=== PATIENT | female | born 1945 | race Caucasian/White ===

== ENCOUNTER → 2018-04-20 | Outpatient (CLI) | payer MEDICARE ==
[2018-04-20 10:49] LABS: T4, Free (Free Thyroxine) 1.45 ng/dL (0.78-2.19)
--- NOTE | 2018-04-20 13:30 | US ---
EXAMINATION TYPE: US thyroid st tissue head/neck DATE OF EXAM: 04/20/2018 COMPARISON: US 07/03/2014 CLINICAL HISTORY: 72-year-old female E04.2 nontoxic multinodular goiter. TECHNIQUE: Multiple sonographic images of the thyroid gland are obtained. FINDINGS: Developer Advisor notes: Very difficult to follow old nodules due to increased heterogenicity of thyroid bi laterally GLAND SIZE: Right Lobe: 4.6 x 1.5 x 1.1 cm Overall Parenchyma: heterogenous Left Lobe: 4.6 x 1.4 x 1.4 cm Overall Parenchyma: heterogeneous Isthmus Thickness: 0.3 cm NODULES RIGHT: # of nodules measured on right: 3 1. 0.7 X 0.6 x 0.7 cm hypoechoic mixed nodule at the upper pole with well-defined margins; . This nodule is wider than tall and shows intranodular vascularity. Prior size: 0.6 x 0.6 x 0.6 cm 2. 0.9 X 0.6 x 0.8 cm isoechoic solid nodule at the lower pole with poorly defined margins; . This nodule is wider than tall and shows intranodular vascularity. Prior size: 0.9 x 0.5 x 1.0 cm 3. 0.9 X 0.6 x 0.9 cm hypoechoic mixed nodule at the lower pole with poorly defined margins; . This nodule is wider than tall and shows intranodular vascularity. Prior size: 0.9 x 0.5 x 0.7 cm LEFT: # of nodules measured on left: 3 1. 1.0 X 0.6 x 0.9 cm hypoechoic solid nodule at the upper pole with well-defined margins; . This nodule is wider than tall and shows intranodular vascularity. Prior size: 1.0 x 0.5 x 0.6 cm 2. 0.9 X 0.5 x 0.8 cm hypoechoic mixed nodule at the mid pole with well-defined margins; . This nod ule is wider than tall and shows intranodular vascularity. Prior size: 0.9 x 0.5 x 1.0 cm 3. 1.8 X 1.2 x 1.4 cm hypoechoic mixed nodule at the lower pole with poorly defined margins; . This nodule is wider than tall and shows intranodular vascularity. Prior size: 1.1 x 0.5 x 1.2 cm ISTHMUS: # of nodules measured in the isthmus: 1 1. 0.6 X 0.3 x 0.6 cm hypoechoic mixed nodule at the mid pole with well-defined margins; . This no dule is wider than tall and shows no intranodular vascularity. Prior size: 0.8 x 0.5 x 0.8 cm Bilateral neck scanned, no evidence of lymphadenopathy. Bilateral heterogeneous, multinodular thyroi d glands. IMPRESSION: 1. Multinodular thyroid gland. 2. Very difficult exam given the degree of parenchymal heterogeneity. 3. Overall, nodules our relatively stable aside from the dominant 1.8 x 1.4 cm mixed nodule in the le ft lower pole increased in size versus 1.2 x 1.1 cm in 2014.
== END | disposition home or self-care (01) ==
LOC: RADUSWWP 09:06
PROVIDERS: ATTEND Internal Medicine Endocrinology, Diabetes & Metabolism
DX: E04.2 Nontoxic multinodular goiter (principal)
CPT/HCPCS: 36415; 76536; 84439; 84443

== ENCOUNTER → 2019-07-22 | Outpatient (CLI) | payer MEDICARE ==
--- NOTE | 2019-07-22 08:25 | US ---
EXAMINATION TYPE: US duplex aorta DATE OF EXAM: 07/22/2019 COMPARISON: CT chest performed today. CLINICAL HISTORY: I71.4 AAA without rupture; J98.4 Lung Nodule. EXAM MEASUREMENTS: Abdominal Aorta: Proximal: 2.9 x 3.2 cm Mid: 3.3 x 4.3 cm Distal: 2.5 x 2.0 cm Bifurcation: rt, 1.0 x 1.1 cm lt, 1.0 x 1.1 cm AAA Atherosclerotic changes noted. IMPRESSION: 1. There is no abdominal aortic aneurysm measuring 4.3 x 3.3 cm. Distal aorta of normal caliber. Ther e also is mild aneurysmal dilation of the proximal abdominal aorta measuring 2.9 x 3.2 cm. Recommend correlation with CT scan.
--- NOTE | 2019-07-22 08:55 | CT ---
EXAMINATION TYPE: CT chest wo con DATE OF EXAM: 07/22/2019 COMPARISON: None available at this institution HISTORY: Follow up lung nodule. Abdominal aortic aneurysm without rupture. CT DLP: 188 mGycm. Automated Exposure Control for Dose Reduction was Utilized. TECHNIQUE: CT scan of the thorax is performed without IV contrast. FINDINGS: LUNGS: There is mild nodular pleural parenchymal thickening of the lung apices and mild background em physematous change. Multifocal pleural parenchymal scarring is present. The lungs are grossly clear, there is no concerning parenchymal mass or nodule identified. There is no pleural effusion or pneum othorax seen. The tracheobronchial tree is patent. MEDIASTINUM: There is aneurysmal dilatation of the descending thoracic aorta distally measuring 3.9 x 3.7 cm in transverse by anterior posterior dimension on series 3 image 52. In the mid descending tho racic aorta the aorta measures 3.8 x 3.8 cm on series 3 image 41. The aortic root measures 3.3 cm, wi thin normal limits. Ascending thoracic aorta at the level of main pulmonary artery measures 3.8 cm, m ildly dilated. Aortic arch measures 3.5 cm. Overall moderate atheromatous changes of the thoracic aor ta and mild coronary artery calcifications. Heart is not enlarged. Lack of IV contrast is noted to li mukul evaluation for mediastinal and especially hilar adenopathy. There are no definitive greater than 1 cm hilar or mediastinal lymph nodes. No cardiomegaly or pericardial effusion is seen. OTHER: Gallbladder surgically absent. Mild multilevel degenerative disc disease of the thoracic spine . Diffuse osseous demineralization. IMPRESSION: 1. Thoracic aortic aneurysm. Descending thoracic aorta is dilated measuring up to 3.9 cm and ascendin g thoracic aorta measures up to 3.8 cm. 2. No suspicious pulmonary nodules seen. Multifocal pleural parenchymal scarring and mild background emphysematous change.
== END | disposition home or self-care (01) ==
LOC: RADCTMAIN 07:16
PROVIDERS: ATTEND Family Medicine
DX: I71.2 Thoracic aortic aneurysm, without rupture (principal); J43.9 Emphysema, unspecified; I71.4 Abdominal aortic aneurysm, without rupture
CPT/HCPCS: 71250; 93979

== ENCOUNTER → 2020-08-17 | Outpatient (CLI) | payer MEDICARE ==
[2020-08-17 13:50] LABS: Basophils # (A) 0.1 k/uL (0-0.2); Basophils % (A) 1 %; Eosinophils # (A) 0.1 k/uL (0-0.7); Eosinophils % (A) 1 %; HCT 32.9 % (34.0-46.0); HGB 11.3 gm/dL (11.4-16.0); Lymphocytes # (A) 2.6 k/uL (1.0-4.8); Lymphocytes % (A) 37 %; MCH 30.7 pg (25.0-35.0); MCHC 34.2 g/dL (31.0-37.0); MCV 89.7 fL (80.0-100.0); Mean Platelet Volume 7.3; Monocytes # (A) 0.5 k/uL (0-1.0); Monocytes % (A) 7 %; Neutrophils # (A) 3.5 k/uL (1.3-7.7); Neutrophils % (A) 51 %; Platelet Count 234 k/uL (150-450); RBC 3.67 m/uL (3.80-5.40); RDW 14.9 % (11.5-15.5); WBC 6.9 k/uL (3.8-10.6)
[2020-08-17 14:00] LABS: Magnesium 1.4 mg/dL (1.6-2.3); Phosphorus 3.7 mg/dL (2.5-4.5); Potassium 3.6 mmol/L (3.5-5.1); Uric Acid 7.4 mg/dL (3.7-7.4)
--- NOTE | 2020-08-17 16:51 | CT ---
EXAMINATION TYPE: CT angio chest DATE OF EXAM: 08/17/2020 COMPARISON: 07/22/2019 HISTORY: 74-year-old female I71.2, follow-up thoracic aortic aneurysm. TECHNIQUE: Contiguous axial scanning of the chest performed without and with IV Contrast, patient inj ected with 100 mL of Isovue 370. Coronal/sagittal MIP reconstructions performed. 3-D reconstructions generated on a dedicated independent workstation. CT DLP: 286.6 mGycm Automated exposure control for dose reduction was used. FINDINGS: Heart normal size without pericardial effusion. Aortic root estimated at 3.4 cm. Limitation due to motion artifact. Ectatic ascending aorta at 3.5 cm, unchanged. Ectatic proximal arch at 3.9 cm versus 4.2 cm, previously. There is variant direct takeoff of the left vertebral artery directly from the aortic arch. Distal arch aneurysmal at 3.8 cm versus 3.7 cm, previously. Upper descending thoracic aorta aneurysmal at 4.1 cm, unchanged. Middescending thoracic aorta is aneurysmal at 3.9 cm, unchanged. Distal descending thoracic aorta aneurysmal 3.6 cm, unchanged. Aorta at the thoracoabdominal junction aneurysm about 3.6 cm, unchanged. Initial noncontrast images show no evidence for acute intramural hematoma. No thoracic lymphadenopathy by CT size criteria. Biapical pleural-parenchymal scarring. Mild centrilobular emphysema. Mild diffuse bronchial wall thi ckening. No consolidation or pleural effusion. Stable 4 mm peripheral right upper lobe pulmonary nodule, axial image 18. Stable 5 mm peripheral right lower lobe pulmonary nodule, axial and 41. Visualized upper abdomen shows no gross abnormality. Bones: No osseous destructive process. Anterior endplate spondylosis T9-T10. IMPRESSION: 1. DIFFUSELY ANEURYSMAL AORTIC ARCH (3.9 CM) AND DESCENDING THORACIC AORTA (4.1 CM), NOT SIGNIFICANTL Y CHANGED FROM 07/22/2019. 2. COPD WITH MILD EMPHYSEMA AND BIAPICAL PLEURAL-PARENCHYMAL SCARRING. A COUPLE PULMONARY NODULES REM AIN UNCHANGED SUGGESTING A BENIGN ETIOLOGY.
[2020-08-17 23:55] LABS: % Iron Saturation 19.11 (12.00-45.00)
[2020-08-18 00:07] LABS: Ferritin 26.9 ng/mL (10.0-291.0)
== END ==
LOC: RADCTMAIN 12:50
PROVIDERS: ATTEND Surgery
DX: I71.2 Thoracic aortic aneurysm, without rupture (principal); J44.9 Chronic obstructive pulmonary disease, unspecified; R91.8 Other nonspecific abnormal finding of lung field; J98.4 Other disorders of lung; E55.9 Vitamin D deficiency, unspecified; N25.81 Secondary hyperparathyroidism of renal origin; M10.9 Gout, unspecified; N39.0 Urinary tract infection, site not specified; D50.9 Iron deficiency anemia, unspecified; D63.1 Anemia in chronic kidney disease; N18.30 Chronic kidney disease, stage 3 unspecified; E03.8 Other specified hypothyroidism
CPT/HCPCS: 80048; 82728; 83540; 83550; 83735; 84100; 84443; 84550; 85025; 82306; 83970; 71275; 36415; Q9967

== ENCOUNTER → 2021-03-09 | Outpatient (CLI) | payer MEDICARE ==
[2021-03-10 01:15] LABS: African American GFR (CKD) 56.5 (60.0-200.0); Anion Gap 3.8 mmol/L (4.00-12.00); BUN/Creat Ratio 11.82 Ratio (12.00-20.00); Calcium 8.6 mg/dL (8.7-10.3); Carbon Dioxide 30.2 mmol/L (21.6-31.8); Non-African American GFR(CKD) 48.7 (60.0-200.0); Potassium 4.2 mmol/L (3.5-5.5)
[2021-03-10 01:24] LABS: T4, Free (Free Thyroxine) 1.1 ng/dL (0.80-1.80)
== END | disposition home or self-care (01) ==
LOC: LABWHC1 11:37
PROVIDERS: ATTEND Internal Medicine Nephrology
DX: N18.31 Chronic kidney disease, stage 3a (principal); E04.2 Nontoxic multinodular goiter
CPT/HCPCS: 36415; 80048; 84439; 84443

== ENCOUNTER → 2021-08-23 | Outpatient (CLI) | payer MEDICARE ==
[2021-08-23 14:15] LABS: Anisocytosis Slight; Basophils % (A) 1 %; Eosinophils # (A) 0.1 k/uL (0-0.7); Eosinophils % (A) 1 %; HCT 29.7 % (34.0-46.0); HGB 9.2 gm/dL (11.4-16.0); Hypochromasia Moderate; Lymphocytes # (A) 2.2 k/uL (1.0-4.8); Lymphocytes % (A) 36 %; MCH 30.1 pg (25.0-35.0); Macrocytosis Slight; Mean Platelet Volume 7.2; Monocytes # (A) 0.6 k/uL (0-1.0); Monocytes % (A) 9 %; Neutrophils % (A) 50 %; Platelet Count 250 k/uL (150-450); RBC 3.06 m/uL (3.80-5.40); RDW 19.2 % (11.5-15.5); WBC 6.1 k/uL (3.8-10.6)
[2021-08-23 14:26] LABS: Albumin 3.4 g/dL (3.5-5.0); Calcium 9.1 mg/dL (8.4-10.2); Magnesium 1.7 mg/dL (1.6-2.3); Phosphorus 4.3 mg/dL (2.5-4.5); Potassium 4.8 mmol/L (3.5-5.1)
[2021-08-23 15:22] LABS: Appearance,Urine Cloudy (Clear); Bacteria,Urine Many /hpf; Bilirubin,Urine Negative (Negative); Blood,Urine Trace (Negative); Color,Urine Light Yellow; Glucose,Urine (UA) Negative (Negative); Hyaline Casts,Urine 10 /lpf (0-2); Ketones,Urine Negative (Negative); Leukocyte Esterase,Urine Large (Negative); Mucus,Urine Rare /hpf; Nitrite,Urine Negative (Negative); Protein,Urine Negative (Negative); RBC,Urine 16 /hpf (0-5); Specific Gravity,Urine 1.011 (1.001-1.035); Squamous Epithelial Cell,Urine 5 /hpf (0-4); Urobilinogen,Urine <2.0 mg/dL (<2.0); WBC,Urine >182 /hpf (0-5)
[2021-08-23 15:37] LABS: Creatinine,Urine Random 66.1 mg/dL; Protein/Creatinine Ratio,Urine 0.257
--- NOTE | 2021-08-23 17:38 | CT ---
EXAMINATION TYPE: CT angio chest DATE OF EXAM: 08/23/2021 COMPARISON: 08/17/2020 HISTORY: 75-year-old female I71.2, h/o thoracic aortic aneurysm w/o rupture and stent placement TECHNIQUE: Contiguous axial scanning of the chest performed without and with IV Contrast, patient inj ected with 80 mL of Isovue 370. Coronal/sagittal MIP reconstructions performed. 3-D reconstructions g enerated on a dedicated independent workstation. CT DLP: 498 mGycm Automated exposure control for dose reduction was used. FINDINGS: Heart normal size without pericardial effusion. Aortic root normal caliber at 3.0 cm. Ascending aorta overlying ectatic at 3.5 cm, unchanged. Proximal arch measures 3.9 cm, unchanged. Interval placement of endovascular stent graft from the mid aortic arch down to the lower descending thoracic aorta. With no direct takeoff of the left vertebral artery directly from the aortic arch. Proximal stent mkiey ding zone is at the level of the left subclavian artery. Distal arch caliber of 3.9 cm, unchanged. Upper descending thoracic aorta caliber 3.6 cm versus 4.0 cm, previously. Just below this, axial image 26, there is a focal 1.6 cm accumulation of contrast outside of the sten t wall along the right lateral aspect, posterior to the esophagus, at the level of the ann-marie. Suspec t a focal type II endoleak. Reference axial image 26 Middescending thoracic aorta caliber 3.7 cm, unchanged. Lower descending thoracic aortic aneurysm 3.8 cm, significantly changed. At the thoracoabdominal junction just beyond the stent graft, caliber of 3.7 cm, unchanged. Initial noncontrast images show no evidence for acute intramural hematoma. No evidence for aortic dis section. No thoracic lymphadenopathy. Mild diffuse bronchial wall thickening. Minimal biapical pleural parenchymal scarring. 4 mm lateral right midlung pulmonary nodule is unchanged compatible with a benign etiology. Some mini mal strandy atelectasis or scarring in the lower lungs. No consolidation or pleural effusion. Minimal emphysematous change. Visualized upper abdomen shows cholecystectomy clips. Bones: No osseous destructive process. IMPRESSION: 1. COPD WITH MINIMAL EMPHYSEMA. 2. INTERVAL PLACEMENT OF DESCENDING THORACIC AORTA ENDOVASCULAR STENT GRAFT EXTENDING FROM THE LEVEL OF THE LEFT SUBCLAVIAN ARTERY TO THE DISTAL DESCENDING THORACIC AORTA. 3. THE UPPER DESCENDING THORACIC AORTA CALIBER IS SLIGHTLY IMPROVED AT 3.6 CM VERSUS 4.0 CM, PREVIOUS LY. OTHERWISE, DIFFUSE ECTASIA OF THE THORACIC AORTA IS UNCHANGED. 4. FOCAL NODULAR 1.6 CM ACCUMULATION OF CONTRAST ALONG THE RIGHT LATERAL WALL OF THE UPPER THIRD DESC ENDING THORACIC AORTA LOCATED OUTSIDE OF THE STENT GRAFT WALL. A TYPE II ENDOLEAK IS SUGGESTED AND FO LLOW-UP IS RECOMMENDED.
[2021-08-23 21:36] LABS: % Iron Saturation 27.1 (12.00-45.00)
== END | disposition home or self-care (01) ==
LOC: RADCTMAIN 13:03
PROVIDERS: ATTEND Surgery
DX: I77.810 Thoracic aortic ectasia (principal); J43.9 Emphysema, unspecified
CPT/HCPCS: 82570; 80048; 84156; 82728; 82040; 83540; 83550; 83735; 84100; 84550; 85025; 81001; 82306; 83970; 87086; 71275; 36415; Q9967

== ENCOUNTER → 2021-09-09 | Outpatient (CLI) | payer MEDICARE ==
--- NOTE | 2021-09-09 13:46 | US ---
EXAMINATION TYPE: US thyroid st tissue head/neck DATE OF EXAM: 09/09/2021 COMPARISON: Prior APRIL 20, 2018 CLINICAL HISTORY: E04.2 MULTINODULAR GOITER. goiter GLAND SIZE: Right Lobe: 5.0 x 2.0 x 1.4 cm Overall Parenchyma: heterogenous Left Lobe: 4.1 x 1.4 x 1.4 cm Overall Parenchyma: heterogeneous Isthmus Thickness: 0.3 cm NODULES RIGHT: # of nodules measured on right: 2 1. 0.9 X 0.6 x 0.7 cm, upper , mixed, hypoechoic nodule, which is wider than tall, with smooth kapil ins, without echogenic foci. Prior size: 0.7 x 0.6 x 0.7 cm 2. 0.9 X 0.5 x 0.6 cm, mid , isoechoic, mixed nodule, which is wider than tall, with ill-defined ma rgins, without echogenic foci. Prior size: 0.9 x 0.6 x 0.8 cm LEFT: # of nodules measured on left: 1 1. 0.9 X 0.6 x 0.7 cm, upper , solid, hypoechoic nodule, which is wider than tall, with smooth kapil ins, echogenic foci. Prior size: 1.0 x 0.6 x 0.9 cm ISTHMUS: # of nodules measured in the isthmus: 1 1. 0.5 X 0.3 x 0.5 cm mixed, hypoechoic nodule, which is wider than tall, with smooth margins, with out echogenic foci. Prior size: 0.6 x 0.3 x 0.6 cm Very difficult to follow old nodules due to increased heterogenicity of thyroid bilaterally Bilateral neck scanned, no evidence of lymphadenopathy. Markedly heterogeneous but normal sized thyroid redemonstrated with scattered bilateral small nodules again seen. IMPRESSION: As above. No significant new greater than 1 cm solid nodules are present.
[2021-09-09 18:28] LABS: T4, Free (Free Thyroxine) 1.23 ng/dL (0.800-1.800)
== END | disposition home or self-care (01) ==
LOC: RADUSWWP 10:27
PROVIDERS: ATTEND Internal Medicine Endocrinology, Diabetes & Metabolism
DX: E04.2 Nontoxic multinodular goiter (principal)
CPT/HCPCS: 76536; 84439; 84443

== ENCOUNTER → 2022-12-08 | Day surgery (SDC) | payer MEDICARE ==
[2022-12-05 10:41] VITALS: BMI 23.3
[~2022-12-08] MED LIST: BENZOCAINE SPRAY 1 CAN TOPICAL ONE; MIDAZOLAM 2 MG/2 ML VIAL IV ONE; SODIUM CHLORIDE 0.9% 500 ML 500 ML IV ONE; fentaNYL (PF) 50 MCG/ML 2 ML AMP IV ONE; fentaNYL (PF) 50 MCG/ML 2 ML AMP ONE
[2022-12-08 06:53] VITALS: RESP 16; TEMP 98.4
[2022-12-08 08:52] VITALS: BP 134/62; PULSE 73
--- NOTE | 2022-12-09 12:56 | P.TEE ---
Description of Procedure(s): Procedure performed: Transesophageal Echocardiogram with color flow doppler, pulsed wave doppler and continuous wave doppler, moderate conscious sedation Moderate conscious sedation: Moderate conscious sedation was supplied with direct supervision of myself using Versed and Fentanyl. Complications: none Indications: Atrial fibrillation, preparation for Watchman procedure PROCEDURE: After the risks, benefits and alternatives of the above mentioned procedure was explained in detail with the patient, informed consent was obt ained. Patient was brought to the lab in a fasting state. Patient was given IV Versed and Fentanyl for sedation. The throat was sprayed with Hurricane to anesthetize the throat. A lubricated Omni probe was then introduced into the esophagus and stomach and multiple views were obtained. 2D echo with color flow doppler, pulsed wave doppler and continuous wave doppler was utilized. Agitated saline bubbles were injected to assess for any intra-atrial shunt. The probe was then removed. Patient tolerated the procedure well. Patient was transferred to the post procedure area in stable and satisfactory condition. FINDINGS: 1. The aortic valve is tricuspid and functioning normally. 2. The mitral valve appears be normal mild mitral regurgitation. 3. Tricuspid valve appears to be normal with mild tricuspid regurgitation. 4. The interatrial septum is intact. No evidence of PFO. 5. Left atrial appendage is free of clot. 6. Left ventricular size and function are normal with left ventricular ejection fraction 55-60%. 7. Left atrial appendage appears adequate depth and anatomy for placement of Watchman device
== END ==
LOC: CATHCVL 06:22
PROVIDERS: ATTEND Internal Medicine
DX: I48.0 Paroxysmal atrial fibrillation (principal); I08.1 Rheumatic disorders of both mitral and tricuspid valves; I12.9 Hypertensive chronic kidney disease with stage 1 through stage 4 chronic kidney disease, or unspecified chronic kidney disease; N18.9 Chronic kidney disease, unspecified; E78.5 Hyperlipidemia, unspecified; I71.40 Abdominal aortic aneurysm, without rupture, unspecified; I65.29 Occlusion and stenosis of unspecified carotid artery; K44.9 Diaphragmatic hernia without obstruction or gangrene; K92.2 Gastrointestinal hemorrhage, unspecified; Z79.01 Long term (current) use of anticoagulants; Z79.82 Long term (current) use of aspirin; Z79.899 Other long term (current) drug therapy; Z88.0 Allergy status to penicillin; Z88.5 Allergy status to narcotic agent
CPT/HCPCS: 93312; 93320; 93325; 99152; J2250; J3010

== ENCOUNTER 2023-03-08 16:58 | Inpatient (IN) | payer MEDICARE ==
[2023-03-08] MEDS ORDERED: MORPHINE SULFATE 4 MG/ML SYRINGE IV STA (18:16)
[2023-03-08] MEDS ORDERED: SODIUM CHLORIDE 0.9% 1,000 ML IV STA (18:16)
[2023-03-08] MEDS ORDERED: KETOROLAC 15 MG/ML 1 ML VIAL IVP STA (18:17)
--- NOTE | 2023-03-08 18:18 | ED ---
Back Pain HPI - General Chief Complaint: Back Pain/Injury Stated Complaint: Back Pain Time Seen by Provider: 03/08/23 17:30 Source: patient, EMS, RN notes reviewed, old records reviewed Limitations: no limitations - History of Present Illness Initial Comments: This is a 77-year-old female to the emergency department for evaluation. This patient presents today for evaluation of severe back pain. Chronic back pain and unable to get out of bed today back pain. Patient has history of chronic back pain with evaluation by both pain management as well as back surgery, not candidate for surgical correction. Patient's back pain is been debilitating and she has significant weakness today patient today was unable to get out of bed but unable to ambulate MD Complaint: back pain, other (severe pain) -: days(s) Similar Symptoms Previously: Yes Place: home Radiation: none Severity: severe Severity scale (1-10): 8 Quality: sharp Consistency: constant Improves With: none Worsens With: none Context: while lifting, turning/twisting Associated Symptoms: denies other symptoms - Related Data Home Medications Medication Instructions Recorded Confirmed Fenofibrate Nanocrystallized 145 mg PO DAILY 07/20/22 03/08/23 [Fenofibrate] Furosemide [Lasix] 20 mg PO DAILY 07/20/22 03/08/23 LORazepam [Ativan] 1 mg PO BID PRN 07/20/22 03/08/23 Levothyroxine Sodium [Synthroid] 50 mcg PO DAILY 07/20/22 03/08/23 Montelukast Sodium [Singulair] 10 mg PO DAILY 07/20/22 03/08/23 Potassium Chloride [Potassium 10 meq PO DAILY 07/20/22 03/08/23 Chloride ER] Propafenone HCl 150 mg PO BID 07/20/22 03/08/23 allopurinoL 100 mg PO DAILY 07/20/22 03/08/23 atenoloL 25 mg PO BID 07/20/22 03/08/23 ramipriL 2.5 mg PO DAILY 07/20/22 03/08/23 NIFEdipine XL [Procardia XL] 30 mg PO DAILY 03/08/23 03/08/23 Pantoprazole Sodium [Protonix] 40 mg PO BID 03/08/23 03/08/23 Sertraline [Zoloft] 50 mg PO DAILY 03/08/23 03/08/23 traMADol HCL 50 mg PO TID PRN 03/08/23 03/08/23 Previous Rx's Medication Instructions Recorded Spironolactone [Aldactone] 25 mg PO DAILY #30 tab 03/09/23 methylPREDNISolone Dose Pack 4 mg PO DIRECTED #1 packet 03/09/23 [Medrol Dose Pack] Allergies Allergy/AdvReac Type Severity Reaction Status Date / Time codeine Allergy Rash/Hives Verified 03/08/23 22:06 Penicillins Allergy Rash/Hives Verified 03/08/23 22:06 ciprofloxacin AdvReac Nausea & Verified 03/08/23 22:06 Vomiting Review of Systems ROS Statement: Those systems with pertinent positive or pertinent negative responses have been documented in the HPI. ROS Other: All systems not noted in ROS Statement are negative. Past Medical History Past Medical History: Atrial Fibrillation, COPD, GERD/Reflux, Hyperlipidemia, Hypertension, Osteoarthritis (OA), Renal Disease, Thyroid Disorder History of Any Multi-Drug Resistant Organisms: None Reported Past Surgical History: Appendectomy, Cholecystectomy, Heart Catheterization, Tonsillectomy Additional Past Surgical History / Comment(s): aortic [id number], fracture spine ,steroid injections Past Anesthesia/Blood Transfusion Reactions: No Reported Reaction Past Psychological History: No Psychological Hx Reported Smoking Status: Current every day smoker Past Alcohol Use History: None Reported Past Drug Use History: None Reported General Exam Limitations: no limitations General appearance: alert, in no apparent distress, anxious Head exam: Present: atraumatic, normocephalic, normal inspection Eye exam: Present: normal appearance, PERRL, EOMI. Absent: scleral icterus, conjunctival injection, periorbital swelling ENT exam: Present: normal exam, mucous membranes moist Neck exam: Present: normal inspection. Absent: tenderness, meningismus, lymphadenopathy Respiratory exam: Present: normal lung sounds bilaterally. Absent: respiratory distress, wheezes, rales, rhonchi, stridor Cardiovascular Exam: Present: regular rate, normal rhythm, tachycardia, normal heart sounds. Absent: systolic murmur, diastolic murmur, rubs, gallop, clicks GI/Abdominal exam: Present: soft, normal bowel sounds. Absent: distended, tenderness, guarding, rebound, rigid Extremities exam: Present: normal inspection, full ROM, normal capillary refill. Absent: tenderness, pedal edema, joint swelling, calf tenderness Back exam: Present: normal inspection Neurological exam: Present: alert, oriented X3, CN II-XII intact Psychiatric exam: Present: normal affect, normal mood Skin exam: Present: warm, dry, intact, normal color. Absent: rash Course Vital Signs 03/08/23 03/08/23 03/08/23 17:10 19:36 21:00 Temperature 97.4 F L Pulse Rate 82 89 82 Respiratory 18 18 18 Rate Blood Pressure 142/75 173/85 168/80 O2 Sat by Pulse 97 96 94 L Oximetry 03/08/23 22:00 Temperature 97.6 F Pulse Rate 82 Respiratory 18 Rate Blood Pressure 168/79 O2 Sat by Pulse 93 L Oximetry - Reevaluation(s) Reevaluation #1: 03/08/23 21:31 Records reviewed Reevaluation #2: 03/08/23 21:31 Patient still with back pain Reevaluation #3: 03/08/23 21:31 Patient informed results questions answered Reevaluation #4: 03/08/23 21:31 Was pt. sent in by a medical professional or institution? @ -no Did you speak to anyone other than the patient for history? @ -no Did you review nursing and triage notes? @ -agree Were old charts reviewed? @ -yes Differential Diagnosis? @ -prior EKG interpreted by me (3pts min.)? @ -yes X-rays interpreted by me (1pt min.)? @ -no CT interpreted by me (1pt min.)? @ -yes U/S interpreted by me (1pt. min.)? @ -no What testing was considered but not performed? (CT, X-rays, U/S, labs)? Why? @ -no What meds were considered but not given? Why? @ -no Did you discuss the management of the patient with other professionals? @ -no Did you reconcile home meds? @ -no Was smoking cessation discussed for >3mins.? @ -no Was critical care preformed (if so, how long)? @ -no Were there social determinants of health that impacted care today? How? (Homelessness, low income, unemployed, alcoholism, drug addiction, transportation, low edu. Level, literacy, decrease access to med. care, custodial, rehab)? @ -no Was there de-escalation of care discussed even if they declined? (Discuss DNR or withdrawal of care, Hospice)? @ -no What co-morbidities impacted this encounter? (DM, HTN, Smoking, COPD, CAD, Ca ncer, CVA, Hep., AIDS, mental health diagnosis, sleep apnea, morbid obesity)? @ -none Was patient admitted / discharged? @ -77 female to the Emergency Room for evaluation of back pain severe. Patient also found to have multiple significant elevtrolyte arrangements with malnutrition patient will be admitted for electrolyte replacement and pain control Admitted Undiagnosed new problem with uncertain prognosis? @ -no Drug Therapy requiring intensive monitoring for toxicity (Heparin, Nitro, Insu ja, Cardizem)? @ -no Were any procedures done? @ -no Diagnosis/symptom? @ -Cbronic Back Pain, Electrolyte Derangements Acute, or Chronic, or Acute on Chronic? @ -acute Uncomplicated (without systemic symptoms) or Complicated (systemic symptoms)? @ -complicated Side effects of treatment? @ -no Exacerbation, Progression, or Severe Exacerbation] @ -no Poses a threat to life or bodily function? @ -yes Reevaluation #5: 03/08/23 21:31 Differential Back Pain: Strain, zoster, cauda equina syndrome, epidural abscess, vertebral osteomyelitis, discitis, fracture, subluxation, disc herniation, DJD, spinal stenosis, dissection, AAA, pancreatitis, peptic ulcer disease, pyelonephritis, kidney stone, this is not meant to be an all-inclusive list. Medical Decision Making - Medical Decision Making 77 female to the Emergency Room for evaluation of back pain severe. Patient also found to have multiple significant elevtrolyte arrangements with malnutrition patient will be admitted for electrolyte replacement and pain control - Lab Data Result diagrams: 03/09/23 05:58 03/09/23 05:58 Lab Results 03/08/23 03/08/23 Range/Units 19:34 19:34 WBC 5.5 (3.8-10.6) k/uL RBC 3.31 L (3.80-5.40) m/uL Hgb 9.8 L (11.4-16.0) gm/dL Hct 30.2 L (34.0-46.0) % MCV 91.3 (80.0-100.0) fL MCH 29.7 (25.0-35.0) pg MCHC 32.5 (31.0-37.0) g/dL RDW 16.8 H (11.5-15.5) % Plt Count 119 L (150-450) k/uL MPV 7.8 Neutrophils % 52 % Lymphocytes % 34 % Monocytes % 10 % Eosinophils % 1 % Basophils % 0 % Neutrophils # 2.9 (1.3-7.7) k/uL Lymphocytes # 1.9 (1.0-4.8) k/uL Monocytes # 0.5 (0-1.0) k/uL Eosinophils # 0.0 (0-0.7) k/uL Basophils # 0.0 (0-0.2) k/uL Anisocytosis Slight Sodium 137 (137-145) mmol/L Potassium 2.7 L* (3.5-5.1) mmol/L Chloride 107 (98-107) mmol/L Carbon Dioxide 26 (22-30) mmol/L Anion Gap 4 mmol/L BUN 11 (7-17) mg/dL Creatinine 0.81 (0.52-1.04) mg/dL Est GFR (CKD-EPI)AfAm 81 (>60 ml/min/1.73 sqM) Est GFR (CKD-EPI)NonAf 70 (>60 ml/min/1.73 sqM) Glucose 82 (74-99) mg/dL Calcium 6.8 L (8.4-10.2) mg/dL Phosphorus 3.4 (2.5-4.5) mg/dL Magnesium 1.2 L (1.6-2.3) mg/dL Total Bilirubin 0.5 (0.2-1.3) mg/dL AST 31 (14-36) U/L ALT 18 (4-34) U/L Alkaline Phosphatase 64 (38-126) U/L Total Protein 4.9 L (6.3-8.2) g/dL Albumin 2.3 L (3.5-5.0) g/dL - Radiology Data Radiology results: report reviewed (CT abd pelvis is positive for right hydron ephrosis), image reviewed Disposition Clinical Impression: Lumbar radiculopathy, Strain of lumbar region, Mechanical back pain, Hypokalemia, Hypomagnesemia, Hydronephrosis, right, Mid back pain, Severe back pain Disposition: ADMITTED IP TO THIS [facility] Condition: Good Is patient prescribed a controlled substance at d/c from ED?: No Time of Disposition: 21:25
[2023-03-08] MEDS: LIDOCAINE 5% PATCH TOPICAL STA ×2 (18:43→19:14)
[2023-03-08 19:56] LABS: Anisocytosis Slight; Basophils % (A) 0 %; Eosinophils % (A) 1 %; HCT 30.2 % (34.0-46.0); HGB 9.8 gm/dL (11.4-16.0); Lymphocytes # (A) 1.9 k/uL (1.0-4.8); Lymphocytes % (A) 34 %; MCH 29.7 pg (25.0-35.0); MCHC 32.5 g/dL (31.0-37.0); MCV 91.3 fL (80.0-100.0); Mean Platelet Volume 7.8; Monocytes # (A) 0.5 k/uL (0-1.0); Monocytes % (A) 10 %; Neutrophils # (A) 2.9 k/uL (1.3-7.7); Neutrophils % (A) 52 %; Platelet Count 119 k/uL (150-450); RBC 3.31 m/uL (3.80-5.40); RDW 16.8 % (11.5-15.5); WBC 5.5 k/uL (3.8-10.6)
[2023-03-08 20:11] LABS: ALT 18 U/L (4-34); AST 31 U/L (14-36); African American GFR (CKD) 81 (>60 ml/min/1.73 sqM); Albumin 2.3 g/dL (3.5-5.0); Alkaline Phosphatase 64 U/L (38-126); Anion Gap 4 mmol/L; Blood Urea Nitrogen 11 mg/dL (7-17); Calcium 6.8 mg/dL (8.4-10.2); Carbon Dioxide 26 mmol/L (22-30); Chloride 107 mmol/L (98-107); Glucose 82 mg/dL (74-99); Magnesium 1.2 mg/dL (1.6-2.3); Non-African American GFR(CKD) 70 (>60 ml/min/1.73 sqM); Phosphorus 3.4 mg/dL (2.5-4.5); Sodium 137 mmol/L (137-145); Total Bilirubin 0.5 mg/dL (0.2-1.3); Total Protein 4.9 g/dL (6.3-8.2)
[2023-03-08 20:34] LABS: Potassium 2.7 mmol/L (3.5-5.1)
--- NOTE | 2023-03-08 20:36 | CT ---
EXAMINATION TYPE: CT abdomen pelvis wo con DATE OF EXAM: 03/08/2023 COMPARISON: 04/07/2022 INDICATION: back pain, no injury DLP: 466.7 mGycm, Automated exposure control for dose reduction was used. CONTRAST: 0 mL of Isovue 300. Study performed without Oral Contrast TECHNIQUE: Axial images were obtained from above the diaphragm to the pubic rami in the axial plane a t 5 mm thick sections. Reconstructed images are reviewed on the computer in the coronal plane. FINDINGS: Limited CT sections are obtained the lung bases. The lung bases are clear. Distal descending thorac ic aortic stent is within the [id number]. CT ABDOMEN: Liver: Normal Spleen: Normal Pancreas: Normal Adrenal glands: The adrenal glands are normal. Gallbladder: Surgically absent Kidneys: No masses are evident. No hydronephrosis is present. No cysts are present. No renal stone s are evident. Minimal hydroureter may be present on the right. Consider recent passage of a renal st one. Correlate with patient's symptoms. Aorta: Vascular calcification is within the aorta. There is mild fusiform prominence of the abdomina l aorta. Aorta however appears to taper through its visualized course to the bifurcation. Inferior vena cava: Normal. CT PELVIS: Phleboliths within the pelvis. Loops of bowel within the abdomen and pelvis are normal. Diverticular changes are within the sigmoid colon. No acute diverticulitis is evident. Study is without oral contrast limits evaluation. Appendix: Not identified. No dilated tubular structure inflammatory changes are evident. Urinary bladder: Normal. Genitourinary structures: There is a large cyst in the left adnexa measuring 5.1 x 3.9 cm. Some calci fications within the left ovary. Right adnexa appears normal. Osseous structures: No suspicious lytic or sclerotic lesions. Degenerative disc changes are within the lumbar spine. IMPRESSIONS: 1. Minimal right hydroureter. Correlate with patient's symptoms. 2. Diverticular changes within the sigmoid colon. No suspicious acute diverticulitis identified. 3. Large 5.1 x 3.9 cm left ovarian cyst. Follow-up is recommended.
[2023-03-08] MEDS ORDERED: POTASSIUM CHLORIDE 20 MEQ in WATER FOR INJECTION 1 100ML.BAG IVPB STA (21:25)
[2023-03-08] MEDS ORDERED: POTASSIUM BICARBONATE/CIT AC 20 MEQ TABLET.EFF PO ONE ×2 (21:25→21:30)
[2023-03-08] MEDS ORDERED: MAGNESIUM OXIDE 400 MG TAB PO STA (21:25)
[2023-03-08] MEDS ORDERED: MORPHINE SULFATE 4 MG/ML SYRINGE IV PRN (21:28)
[2023-03-08] MEDS ORDERED: ONDANSETRON 4 MG/2 ML VIAL IVP PRN (21:28)
[2023-03-08] MEDS ORDERED: NALOXONE 0.4 MG/ML 1 ML VIAL IV PRN (21:28)
[2023-03-08] MEDS: MAGNESIUM SULFATE-D5W PMX 1 GM in DEXTROSE/WATER 1 100ML.BAG IVPB SCH ×2 (21:58→23:07)
[2023-03-08] MEDS: SODIUM CHLORIDE 0.9% 1,000 ML IV SCH (22:09)
[2023-03-08] MEDS ORDERED: ALPRAZolam 0.25 MG TAB PO STA (23:43)
[2023-03-09] MEDS: POTASSIUM CHLORIDE ER 20 MEQ TAB.ER PO SCH ×4 (00:07→13:11)
[2023-03-09] MEDS ORDERED: ACETAMINOPHEN TAB 325 MG TAB PO PRN (05:37)
[2023-03-09] MEDS: NITROGLYCERIN OINT 1 INCH/GM PACKET TOPICAL SCH ×2 (05:56→12:01)
[2023-03-09 06:21] LABS: Anisocytosis Slight; Basophils % (A) 0 %; Eosinophils % (A) 1 %; HCT 33.5 % (34.0-46.0); HGB 10.8 gm/dL (11.4-16.0); Lymphocytes # (A) 1.9 k/uL (1.0-4.8); Lymphocytes % (A) 31 %; MCH 29.7 pg (25.0-35.0); MCHC 32.3 g/dL (31.0-37.0); Monocytes # (A) 0.6 k/uL (0-1.0); Monocytes % (A) 10 %; Neutrophils # (A) 3.4 k/uL (1.3-7.7); Neutrophils % (A) 55 %; Platelet Count 156 k/uL (150-450); RBC 3.65 m/uL (3.80-5.40); RDW 16.8 % (11.5-15.5); WBC 6.1 k/uL (3.8-10.6)
[2023-03-09 06:45] LABS: ALT 19 U/L (4-34); AST 32 U/L (14-36); African American GFR (CKD) >90 (>60 ml/min/1.73 sqM); Albumin 2.6 g/dL (3.5-5.0); Alkaline Phosphatase 81 U/L (38-126); Anion Gap 3 mmol/L; Blood Urea Nitrogen 7 mg/dL (7-17); Calcium 7.3 mg/dL (8.4-10.2); Carbon Dioxide 30 mmol/L (22-30); Chloride 105 mmol/L (98-107); Glucose 96 mg/dL (74-99); Non-African American GFR(CKD) 79 (>60 ml/min/1.73 sqM); Phosphorus 3.1 mg/dL (2.5-4.5); Potassium 3.2 mmol/L (3.5-5.1); Sodium 138 mmol/L (137-145); Total Bilirubin 0.5 mg/dL (0.2-1.3); Total Protein 5.3 g/dL (6.3-8.2)
[2023-03-09 08:37] VITALS: TEMP 97.7
[2023-03-09] MEDS ORDERED: MAGNESIUM OXIDE 400 MG TAB PO SCH (09:00)
[2023-03-09] MEDS ORDERED: Potassium Replacement Protocol 1 EACH MISC MISCELLANE PRN (10:01)
[2023-03-09] MEDS ORDERED: LORazepam 1 MG TAB PO PRN (10:07)
[2023-03-09] MEDS ORDERED: methylPREDNISolone SOD SUCCI 125 MG/2 ML VIAL IV SCH (10:15)
--- NOTE | 2023-03-09 11:04 | P.CNOR ---
History of Present Illness - [facility] Consult date: 03/09/23 Consult reason: low back pain History of present illness: The patient is seen and examined at bedside. She is a pleasant 77-year-old female who has long-standing history of low back pain. She has been seen at [facility] and has been undergoing continued treatment with interventional pain management with Dr. Medina. She has had multiple interventional management procedures including recent workup and treatment for facet injections with possible facet ablation with interventional pain management. She had trial injections just a couple of weeks ago and had an appointment with Dr. Medina just 4 days ago on Monday. She was scheduled to undergo further treatment but was having worsening pain and presented here to the hospital yesterday. She says the pain at her back in been excruciating and she was unable to mobilize or stand. She says whenever she tried to stand up the pain was excruciating at her back and she was unable to get around. She says that today the pain is slightly improved and she is able to get around. She denies any new numbness tingling in her lower extremity. Denies any weakness in her lower extremity is. She is pain is primarily at her lower back and across her back. She denies any fevers chills night sweats. She denies any recent injury. Review of Systems Denies any changes in bowel bladder function. Denies any weakness in the lower extremity is. She says the pain is worse when she tries to walk a significant amount she is walking better today. Denies any chest pain. Denies abdominal pain stems and nausea vomiting. Denies any fevers chills. Past Medical History Past Medical History: Atrial Fibrillation, COPD, GERD/Reflux, Hyperlipidemia, Hypertension, Osteoarthritis (OA), Renal Disease, Thyroid Disorder Additional Past Medical History / Comment(s): Chronic low back pain with history of compression deformities at T11 and L3 History of Any Multi-Drug Resistant Organisms: None Reported Past Surgical History: Appendectomy, Cholecystectomy, Heart Catheterization, Tonsillectomy Additional Past Surgical History / Comment(s): aortic [id number], fracture spine ,steroid injections, ovary removal Past Anesthesia/Blood Transfusion Reactions: No Reported Reaction Past Psychological History: No Psychological Hx Reported Smoking Status: Current every day smoker Past Alcohol Use History: None Reported Past Drug Use History: None Reported Medications and Allergies Home Medications Medication Instructions Recorded Confirmed Type Fenofibrate Nanocrystallized 145 mg PO DAILY 07/20/22 03/08/23 History [Fenofibrate] Furosemide [Lasix] 20 mg PO DAILY 07/20/22 03/08/23 History LORazepam [Ativan] 1 mg PO BID PRN 07/20/22 03/08/23 History Levothyroxine Sodium [Synthroid] 50 mcg PO DAILY 07/20/22 03/08/23 History Montelukast Sodium [Singulair] 10 mg PO DAILY 07/20/22 03/08/23 History Potassium Chloride [Potassium 10 meq PO DAILY 07/20/22 03/08/23 History Chloride ER] Propafenone HCl 150 mg PO BID 07/20/22 03/08/23 History allopurinoL 100 mg PO DAILY 07/20/22 03/08/23 History atenoloL 25 mg PO BID 07/20/22 03/08/23 History ramipriL 2.5 mg PO DAILY 07/20/22 03/08/23 History NIFEdipine XL [Procardia Xl] 30 mg PO DAILY 03/08/23 03/08/23 History Pantoprazole Sodium [Protonix] 40 mg PO BID 03/08/23 03/08/23 History Sertraline [Zoloft] 50 mg PO DAILY 03/08/23 03/08/23 History traMADol HCL 50 mg PO TID PRN 03/08/23 03/08/23 History Allergies Allergy/AdvReac Type Severity Reaction Status Date / Time codeine Allergy Rash/Hives Verified 03/08/23 22:06 Penicillins Allergy Rash/Hives Verified 03/08/23 22:06 ciprofloxacin AdvReac Nausea & Verified 03/08/23 22:06 Vomiting Physical Examination Osteopathic Statement: *. No significant issues noted on an osteopathic structural exam other than those noted in the History and Physical/Consult. - L Spine: dermatomal strength & reflexes bilateral Strength: hip flexion: 5/5 (At her back there is no open wounds lacerations or abrasions. There is no erythema. She is nontender to palpation over the midline. She has some paravertebral spasm.) Strength: hip extension: 5/5 (She is able to sit up well in bed and stand up inside bed. She has pain with extension. She is able stand on her toes and heels. She is 5 strength of bilateral lower extremities. No pain with internal/external rotation of her hips) Results - Labs Labs: Abnormal Lab Results - Last 24 Hours (Table) 03/08/23 03/08/23 03/09/23 Range/Units 19:34 19:34 05:58 RBC 3.31 L 3.65 L (3.80-5.40) m/uL Hgb 9.8 L 10.8 L (11.4-16.0) gm/dL Hct 30.2 L 33.5 L (34.0-46.0) % RDW 16.8 H 16.8 H (11.5-15.5) % Plt Count 119 L (150-450) k/uL Potassium 2.7 L* (3.5-5.1) mmol/L Calcium 6.8 L (8.4-10.2) mg/dL Magnesium 1.2 L (1.6-2.3) mg/dL Total Protein 4.9 L (6.3-8.2) g/dL Albumin 2.3 L (3.5-5.0) g/dL 03/09/23 Range/Units 05:58 RBC (3.80-5.40) m/uL Hgb (11.4-16.0) gm/dL Hct (34.0-46.0) % RDW (11.5-15.5) % Plt Count (150-450) k/uL Potassium 3.2 L (3.5-5.1) mmol/L Calcium 7.3 L (8.4-10.2) mg/dL Magnesium (1.6-2.3) mg/dL Total Protein 5.3 L (6.3-8.2) g/dL Albumin 2.6 L (3.5-5.0) g/dL H & H 03/08/23 03/09/23 Range/Units 19:34 05:58 Hgb 9.8 L 10.8 L (11.4-16.0) gm/dL Hct 30.2 L 33.5 L (34.0-46.0) % Result Diagrams: 03/09/23 05:58 03/09/23 05:58 - Diagnostic results CT Scan - lumbar: report reviewed, image reviewed (Computed tomography scan of her abdomen and pelvis in regards to her lumbar spine is reviewed. There is evidence of chronic compression deformity at T11 and L3. There is significant disc degeneration with evidence of stenosis and facet arthrosis L2-3 L3 4 L4 5.) Assessment and Plan Assessment: Acute on chronic low back pain No evidence of lower extremity neurologic change or decline Severe facet arthrosis Chronic compression deformities at T11 and L3 which appears stable Hypokalemia Plan: Acute on chronic low back pain No evidence of lower extremity neurologic change or decline Severe facet arthrosis Chronic compression deformities at T11 and L3 which appears stable Hypokalemia In regards to the patient's back pain, she had exacerbation of her her symptoms and is in the process of obtaining a facet rhizotomy ablations at her lumbar spine. She had some good relief with the trial injections but seems to be having a flareup as the trial results diminished. I think that she could have some improvement with facet rhizotomy and she should proceed with that scheduling. She is not having any acute neurologic deficit or evidence of instability and I do not plan any surgical intervention for her at this point. I think from a spine surgery standpoint is okay for her to be discharged to continue her workup and treatment with interventional pain management with Dr. Medina. I discussed this with her and her friend at bedside and they are agreeable. Medicine is managing her hypokalemia and if it is clear with him and is okay from a spine standpoint for discharge to home today. She'll follow up with Dr. Medina scheduled and contact the office for further treatment.
[2023-03-09 11:36] VITALS: BMI 22.4
[2023-03-09] MEDS ORDERED: POTASSIUM BICARBONATE/CIT AC 20 MEQ TABLET.EFF PO ONE (11:38)
[2023-03-09 12:04] VITALS: BP 165/78; PULSE 78; RESP 18
[2023-03-09] MEDS: SODIUM CHLORIDE 0.9% 1,000 ML IV SCH (13:11)
--- NOTE | 2023-03-09 13:30 | P.HPIM ---
History of Present Illness H&P Date: 03/09/23 History of present illness; patient is a 77-year-old lady with past medical hist ory of chronic back pain presented to the ER because of worsening back pain. Patient was unable to get out of the bed, was having increased weakness. Patient has seen surgery and pain management for her back pain but was deemed to be not a surgical candidate. Initial lab work done in the ER showed WBC 5.5, hemoglobin 9.8, platelet count 119, sodium 137, potassium 2.7, calcium 6.8, magnesium 1.2 EKG done in the ER showed regular rate 76, QRS 86, no T-wave inversion, no acute ST segment changes CT abdominal and pelvis done showed minimal right hydroureter, diverticular changes in the sigmoid colon, no suspicious acute diverticulitis, large 5.1 x 3.9 cm left ovarian cyst Patient admitted to medicine service REVIEW OF SYSTEMS: CONSTITUTIONAL: No fever, no malaise, no fatigue. HEENT: No recent visual problems or hearing problems. Denied any sore throat. CARDIOVASCULAR: No chest pain, orthopnea, PND, no palpitations, no syncope. PULMONARY: No shortness of breath, no cough, no hemoptysis. GASTROINTESTINAL: No diarrhea, no nausea, no vomiting, no abdominal pain. NEUROLOGICAL: No headaches, no weakness, no numbness. HEMATOLOGICAL: Denies any bleeding or petechiae. GENITOURINARY: Denies any burning micturition, frequency, or urgency. MUSCULOSKELETAL/RHEUMATOLOGICAL: Mentioned in HPI ENDOCRINE: Denies any polyuria or polydipsia. The rest of the 14-point review of systems is negative. PHYSICAL EXAMINATION: GENERAL: The patient is alert and oriented x3, not in any acute distress. Well developed, well nourished. HEENT: Pupils are round and equally reacting to light. EOMI. No scleral icterus. No conjunctival pallor. Normocephalic, atraumatic. No pharyngeal erythema. No thyromegaly. CARDIOVASCULAR: S1 and S2 present. No murmurs, rubs, or gallops. PULMONARY: Chest is clear to auscultation, no wheezing or crackles. ABDOMEN: Soft, nontender, nondistended, normoactive bowel sounds. No palpable organomegaly. MUSCULOSKELETAL: No joint swelling or deformity. EXTREMITIES: No cyanosis, clubbing, or pedal edema. NEUROLOGICAL: Gross neurological examination did not reveal any focal deficits. SKIN: No rashes. Assessment and plan Lumbar retinopathy Acute on chronic back pain Hypokalemia Hypomagnesemia Hypocalcemia Hypothyroidism Hyperlipidemia Hypertension Left ovarian cyst Monitor vital signs Monitor CBC Monitor CMP Continue telemetry monitoring Continue pain management Continue muscle relaxers Consult orthopedics for acute on chronic back pain Resume home meds medication were reviewed.. Continue same treatment. Continue with symptomatic treatment. Resume home medication. Monitor labs and vitals. DVT and GI prophylaxis. Further recommendations as per clinical course of the patient Dictation was produced using [employer] dictation software. please excuse any grammatical, word or spelling errors. Past Medical History Past Medical History: Atrial Fibrillation, COPD, GERD/Reflux, Hyperlipidemia, Hypertension, Osteoarthritis (OA), Renal Disease, Thyroid Disorder History of Any Multi-Drug Resistant Organisms: None Reported Past Surgical History: Appendectomy, Cholecystectomy, Heart Catheterization, Tonsillectomy Additional Past Surgical History / Comment(s): aortic [id number], fracture spine ,steroid injections, ovary removal Past Anesthesia/Blood Transfusion Reactions: No Reported Reaction Past Psychological History: No Psychological Hx Reported Smoking Status: Current every day smoker Past Alcohol Use History: None Reported Past Drug Use History: None Reported Medications and Allergies Home Medications Medication Instructions Recorded Confirmed Type Fenofibrate Nanocrystallized 145 mg PO DAILY 07/20/22 03/08/23 History [Fenofibrate] Furosemide [Lasix] 20 mg PO DAILY 07/20/22 03/08/23 History LORazepam [Ativan] 1 mg PO BID PRN 07/20/22 03/08/23 History Levothyroxine Sodium [Synthroid] 50 mcg PO DAILY 07/20/22 03/08/23 History Montelukast Sodium [Singulair] 10 mg PO DAILY 07/20/22 03/08/23 History Potassium Chloride [Potassium 10 meq PO DAILY 07/20/22 03/08/23 History Chloride ER] Propafenone HCl 150 mg PO BID 07/20/22 03/08/23 History allopurinoL 100 mg PO DAILY 07/20/22 03/08/23 History atenoloL 25 mg PO BID 07/20/22 03/08/23 History ramipriL 2.5 mg PO DAILY 07/20/22 03/08/23 History NIFEdipine XL [Procardia Xl] 30 mg PO DAILY 03/08/23 03/08/23 History Pantoprazole Sodium [Protonix] 40 mg PO BID 03/08/23 03/08/23 History Sertraline [Zoloft] 50 mg PO DAILY 03/08/23 03/08/23 History traMADol HCL 50 mg PO TID PRN 03/08/23 03/08/23 History methylPREDNISolone Dose Pack 4 mg PO DIRECTED #1 packet 03/09/23 Rx [Medrol Dose Pack] Allergies Allergy/AdvReac Type Severity Reaction Status Date / Time codeine Allergy Rash/Hives Verified 03/08/23 22:06 Penicillins Allergy Rash/Hives Verified 03/08/23 22:06 ciprofloxacin AdvReac Nausea & Verified 03/08/23 22:06 Vomiting Physical Exam Vitals: Vital Signs Temp Pulse Pulse Resp BP BP BP 03/09/23 08:36 97.7 F 71 16 157/71 03/09/23 06:31 71 166/75 03/09/23 05:32 75 176/79 03/09/23 01:53 97.9 F 74 18 156/75 03/08/23 23:01 98.0 F 79 18 175/78 03/08/23 22:00 97.6 F 82 18 168/79 03/08/23 21:00 82 18 168/80 03/08/23 19:36 97.4 F L 89 18 173/85 03/08/23 17:10 82 18 142/75 Pulse Ox 03/09/23 08:36 99 03/09/23 06:31 03/09/23 05:32 03/09/23 01:53 91 L 03/08/23 23:01 94 L 03/08/23 22:00 93 L 03/08/23 21:00 94 L 03/08/23 19:36 96 03/08/23 17:10 97 Intake and Output 03/08/23 03/09/23 03/09/23 22:59 06:59 14:59 Intake Total 200 Output Total 900 Balance -700 Intake: Oral 200 Output: Urine 900 Other: # Voids 1 1 Weight 61.235 kg 61.235 kg Results CBC & Chem 7: 03/09/23 05:58 03/09/23 05:58 Labs: Abnormal Lab Results - Last 24 Hours (Table) 07/03/08/23 03/09/23 Range/Units 19:34 19:34 05:58 RBC 3.31 L 3.65 L (3.80-5.40) m/uL Hgb 9.8 L 10.8 L (11.4-16.0) gm/dL Hct 30.2 L 33.5 L (34.0-46.0) % RDW 16.8 H 16.8 H (11.5-15.5) % Plt Count 119 L (150-450) k/uL Potassium 2.7 L* (3.5-5.1) mmol/L Calcium 6.8 L (8.4-10.2) mg/dL Magnesium 1.2 L (1.6-2.3) mg/dL Total Protein 4.9 L (6.3-8.2) g/dL Albumin 2.3 L (3.5-5.0) g/dL 03/09/23 Range/Units 05:58 RBC (3.80-5.40) m/uL Hgb (11.4-16.0) gm/dL Hct (34.0-46.0) % RDW (11.5-15.5) % Plt Count (150-450) k/uL Potassium 3.2 L (3.5-5.1) mmol/L Calcium 7.3 L (8.4-10.2) mg/dL Magnesium (1.6-2.3) mg/dL Total Protein 5.3 L (6.3-8.2) g/dL Albumin 2.6 L (3.5-5.0) g/dL Thrombosis Risk Factor Assmnt - Choose All That Apply Any of the Below Risk Factors Present?: Yes Each Factor Represents 1 point: Abnormal pulmonary function (COPD) Other Risk Factors: Yes Each Risk Factor Represents 2 Points: Patient confined to bed Each Risk Factor Represents 3 Points: Age 75 years or older Other congenital or acquired thrombophilia - If yes, enter type in comment: No Thrombosis Risk Factor Assessment Total Risk Factor Score: 6 Thrombosis Risk Factor Assessment Level: High Risk
[2023-03-09] MEDS ORDERED: SPIRONOLACTONE 25 MG TAB PO SCH (14:45)
[2023-03-09] MEDS ORDERED: PANTOPRAZOLE 40 MG TABLET PO SCH (17:30)
[2023-03-09] MEDS ORDERED: PROPAFENONE 150 MG TAB PO SCH (21:00)
[2023-03-09] MEDS ORDERED: atenoloL 25 MG TAB PO SCH (21:00)
[2023-03-10] MEDS ORDERED: LEVOTHYROXINE 50 MCG TAB PO SCH (06:30)
[2023-03-10] MEDS ORDERED: lisinopriL 10 MG TAB PO SCH (09:00)
[2023-03-10] MEDS ORDERED: SERTRALINE 50 MG TAB PO SCH (09:00)
[2023-03-10] MEDS ORDERED: NIFEdipine XL 30 MG TAB.ER.24 PO SCH (09:00)
[2023-03-10] MEDS ORDERED: FUROSEMIDE 20 MG TAB PO SCH (09:00)
[2023-03-10] MEDS ORDERED: POTASSIUM CHLORIDE ER 10 MEQ TAB.ER.PRT PO SCH (09:00)
[2023-03-10] MEDS ORDERED: FENOFIBRATE 160 MG TAB PO SCH (09:00)
[2023-03-10] MEDS ORDERED: MONTELUKAST 10 MG TAB PO SCH (09:00)
[2023-03-10] MEDS ORDERED: allopurinoL 100 MG TAB PO SCH (09:00)
--- NOTE | 2023-03-11 15:10 | P.CRDCN ---
History of Present Illness Consult date: 03/09/23 Reason for Consult (text): Abnormal EKG History of present illness: History of present illness: This is a 77-year-old female patient of Dr. Cameron with past medical history of hypertension, hyperlipidemia, paroxysmal atrial fibrillation, abdominal aortic aneurysms status post rupture and and endograft placement as well as endograft leaks, chronic kidney disease, carotid artery stenosis. We have been asked to evaluate the patient for abnormal EKG. She was on the MedSur floor and was transferred over to the cardiac stepdown unit as a remote telemetry was not available. Nurse apparently was concern that there was EKG changes with a sinus arrhythmia and anterior infarct. Patient was brought into the hospital due to chronic back pain unable to get out of bed due to the pain. She was seen by orthopedic spine and was scheduled for discharge home today. EKG sinus rhythm with no acute ST changes. CAT scan of the abdomen and pelvis revealed minimal right hydroureter. Diverticular changes in the sigmoid colon no suspicious diverticulitis. Large ovarian cyst. WBC 6.1, hemoglobin 10.8, platelet count 156. Sodium 138, potassium 3.2, BUN 7 creatinine 0.77. Troponin negative 3. Liver function tests are normal. Home cardiac medications: Atenolol 25 mg twice daily, Lasix 20 mg daily, levothyroxine 50 mics grams daily, Procardia XL 30 mg daily, potassium chloride ER 10 mEq daily, ramipril 2.5 mg daily, Aldactone 25 mg daily Review Of Systems: At the time of my evaluation: Constitutional: No fever, no chills. No weakness, fatigue or lethargy. EENT: No headache. No dizziness. Lungs: No shortness of breath, cough, no sputum production. No wheezing. Cardiovascular: No chest pain, no lower extremity edema. No palpitations. No paroxysmal nocturnal dyspnea. No orthopnea. No lightheadedness or dizziness. No syncopal episodes. Abdominal: No abdominal pain. No nausea, vomiting. No diarrhea. No constipation. No bloody or tarry stools. Musculoskeletal: No myalgias. No muscle weakness, no frequent falls. Chronic back pain. Integumentary: No wounds. No rash. No unusual bruising. Neurologic: No aphasia. No facial droop. No change in mentation. No head injury. No headache. Physical examination: Gen: This is a 77-year-old female. She is resting in recliner and appears to be comfortable. VS: reviewed HEENT: Head is atraumatic, normocephalic. Pupils equal, round. Sclerae is anicteric. NECK: Supple. No JVD. . LUNGS: Clear to auscultation. No wheezes or rhonchi. No intercostal retr actions. HEART: Regular rate and rhythm. No murmur. ABDOMEN: Soft No tenderness. EXTREMITIES: No pedal edema. No calf tenderness. NEUROLOGICAL: Patient is awake, alert and oriented x3. Assessment: Back pain Hypertension Hyperlipidemia Paroxysmal atrial fibrillation Abdominal aortic aneurysm status post rupture and endograft placement Plan: No cardiac workup necessary at this time. Patient is cleared for discharge may follow-up with Dr. Cameron in the office. Thank you kindly for this consultation. Nurse practitioner note has been reviewed, I agree with documented findings and plan of care. Patient was seen and examined. Past Medical History Past Medical History: Atrial Fibrillation, COPD, GERD/Reflux, Hyperlipidemia, Hypertension, Osteoarthritis (OA), Renal Disease, Thyroid Disorder Additional Past Medical History / Comment(s): Chronic low back pain with history of compression deformities at T11 and L3 History of Any Multi-Drug Resistant Organisms: None Reported Past Surgical History: Appendectomy, Cholecystectomy, Heart Catheterization, Tonsillectomy Additional Past Surgical History / Comment(s): aortic [id number], fracture spine ,steroid injections, ovary removal Past Anesthesia/Blood Transfusion Reactions: No Reported Reaction Past Psychological History: No Psychological Hx Reported Smoking Status: Current every day smoker Past Alcohol Use History: None Reported Past Drug Use History: None Reported Medications and Allergies Home Medications Medication Instructions Recorded Confirmed Type Fenofibrate Nanocrystallized 145 mg PO DAILY 07/20/22 03/08/23 History [Fenofibrate] Furosemide [Lasix] 20 mg PO DAILY 07/20/22 03/08/23 History LORazepam [Ativan] 1 mg PO BID PRN 07/20/22 03/08/23 History Levothyroxine Sodium [Synthroid] 50 mcg PO DAILY 07/20/22 03/08/23 History Montelukast Sodium [Singulair] 10 mg PO DAILY 07/20/22 03/08/23 History Potassium Chloride [Potassium 10 meq PO DAILY 07/20/22 03/08/23 History Chloride ER] Propafenone HCl 150 mg PO BID 07/20/22 03/08/23 History allopurinoL 100 mg PO DAILY 07/20/22 03/08/23 History atenoloL 25 mg PO BID 07/20/22 03/08/23 History ramipriL 2.5 mg PO DAILY 07/20/22 03/08/23 History NIFEdipine XL [Procardia XL] 30 mg PO DAILY 03/08/23 03/08/23 History Pantoprazole Sodium [Protonix] 40 mg PO BID 03/08/23 03/08/23 History Sertraline [Zoloft] 50 mg PO DAILY 03/08/23 03/08/23 History traMADol HCL 50 mg PO TID PRN 03/08/23 03/08/23 History Spironolactone [Aldactone] 25 mg PO DAILY #30 tab 03/09/23 Rx methylPREDNISolone Dose Pack 4 mg PO DIRECTED #1 packet 03/09/23 Rx [Medrol Dose Pack] Allergies Allergy/AdvReac Type Severity Reaction Status Date / Time codeine Allergy Rash/Hives Verified 03/08/23 22:06 Penicillins Allergy Rash/Hives Verified 03/08/23 22:06 ciprofloxacin AdvReac Nausea & Verified 03/08/23 22:06 Vomiting Physical Exam Vitals: Vital Signs Temp Pulse Pulse Resp BP BP BP 03/09/23 12:04 78 18 165/78 03/09/23 08:36 97.7 F 71 16 157/71 03/09/23 06:31 71 166/75 03/09/23 05:32 75 176/79 03/09/23 01:53 97.9 F 74 18 156/75 03/08/23 23:01 98.0 F 79 18 175/78 03/08/23 22:00 97.6 F 82 18 168/79 03/08/23 21:00 82 18 168/80 03/08/23 19:36 97.4 F L 89 18 173/85 03/08/23 17:10 82 18 142/75 Pulse Ox 03/09/23 12:04 97 03/09/23 08:36 99 03/09/23 06:31 03/09/23 05:32 03/09/23 01:53 91 L 03/08/23 23:01 94 L 03/08/23 22:00 93 L 03/08/23 21:00 94 L 03/08/23 19:36 96 03/08/23 17:10 97 Intake and Output 03/08/23 03/09/23 03/09/23 22:59 06:59 14:59 Intake Total 200 Output Total 900 Balance -700 Intake: Oral 200 Output: Urine 900 Other: # Voids 1 1 Weight 61.235 kg 61.235 kg 61.235 kg Results 03/09/23 05:58 03/09/23 05:58 Cardiac Enzymes 03/08/23 03/09/23 03/09/23 Range/Units 19:34 05:58 05:58 AST 31 32 (14-36) U/L Troponin I <0.012 (0.000-0.034) ng/mL 03/09/23 03/09/23 Range/Units 08:45 11:32 AST (14-36) U/L Troponin I 0.014 <0.012 (0.000-0.034) ng/mL CBC 03/08/23 03/09/23 Range/Units 19:34 05:58 WBC 5.5 6.1 (3.8-10.6) k/uL RBC 3.31 L 3.65 L (3.80-5.40) m/uL Hgb 9.8 L 10.8 L (11.4-16.0) gm/dL Hct 30.2 L 33.5 L (34.0-46.0) % Plt Count 119 L 156 (150-450) k/uL Comprehensive Metabolic Panel 03/08/23 03/09/23 Range/Units 19:34 05:58 Sodium 137 138 (137-145) mmol/L Potassium 2.7 L* 3.2 L (3.5-5.1) mmol/L Chloride 107 105 (98-107) mmol/L Carbon Dioxide 26 30 (22-30) mmol/L BUN 11 7 (7-17) mg/dL Creatinine 0.81 0.73 (0.52-1.04) mg/dL Glucose 82 96 (74-99) mg/dL Calcium 6.8 L 7.3 L (8.4-10.2) mg/dL AST 31 32 (14-36) U/L ALT 18 19 (4-34) U/L Alkaline Phosphatase 64 81 (38-126) U/L Total Protein 4.9 L 5.3 L (6.3-8.2) g/dL Albumin 2.3 L 2.6 L (3.5-5.0) g/dL Current Medications Generic Name Dose Route Start Last Admin Trade Name Freq PRN Reason Stop Dose Admin Acetaminophen 650 mg 03/09/23 05:37 Acetaminophen Tab 325 Mg Tab PO Q6HR PRN Fever and/ or Pain Allopurinol 100 mg 03/10/23 09:00 Allopurinol 100 Mg Tab PO DAILY [facility] Atenolol 25 mg 03/09/23 21:00 Atenolol 25 Mg Tab PO BID [facility] Fenofibrate 160 mg 03/10/23 09:00 Fenofibrate 160 Mg Tab PO DAILY [facility] Furosemide 20 mg 03/10/23 09:00 Furosemide 20 Mg Tab PO DAILY [facility] Sodium Chloride 1,000 mls @ 75 mls/hr 03/08/23 21:30 03/09/23 13:11 Saline 0.9% IV Not Given .[id number] [facility] Levothyroxine Sodium 50 mcg 03/10/23 06:30 Levothyroxine 50 Mcg Tab PO DAILY@0630 [facility] Lisinopril 10 mg 03/10/23 09:00 Lisinopril 10 Mg Tab PO DAILY [facility] Lorazepam 1 mg 03/09/23 10:07 03/09/23 10:26 Lorazepam 1 Mg Tab PO 1 mg BID PRN Administration Anxiety Magnesium Oxide 400 mg 03/09/23 09:00 03/09/23 08:37 Magnesium Oxide 400 Mg Tab PO 400 mg BID [facility] Administration Methylprednisolone Sodium Succinate 60 mg 03/09/23 10:15 03/09/23 10:26 Methylprednisolone Sod Succi 125 Mg/2 Ml Vial IV 60 mg DAILY [facility] Administration Miscellaneous Information 1 each 03/09/23 10:01 Potassium Replacement Protocol 1 Each Misc MISCELLANE DAILY PRN Per Protocol Protocol Montelukast Sodium 10 mg 03/10/23 09:00 Montelukast 10 Mg Tab PO DAILY [facility] Morphine Sulfate 4 mg 03/08/23 21:28 Morphine Sulfate 4 Mg/Ml Syringe IV Q4HR PRN Severe Pain (Scale 7 to 10) Naloxone HCl 0.2 mg 03/08/23 21:28 Naloxone 0.4 Mg/Ml 1 Ml Vial IV Q2M PRN Opioid Reversal Nifedipine 30 mg 03/10/23 09:00 Nifedipine Xl 30 Mg Tab.Er.24 PO DAILY [facility] Nitroglycerin 1 inch 03/09/23 06:00 03/09/23 12:01 Nitroglycerin Oint 1 Inch/Gm Packet TOPICAL 1 inch Q6HR [facility] Administration Ondansetron HCl 4 mg 03/08/23 21:28 03/09/23 00:07 Ondansetron 4 Mg/2 Ml Vial IVP 4 mg Q8HR PRN Administration Nausea And Vomiting Pantoprazole Sodium 40 mg 03/09/23 17:30 Pantoprazole 40 Mg Tablet PO AC-BID [facility] Potassium Chloride 10 meq 03/10/23 09:00 Potassium Chloride Er 10 Meq Tab.Er.Prt PO DAILY [facility] Propafenone HCl 150 mg 03/09/23 21:00 Propafenone 150 Mg Tab PO BID [facility] Sertraline HCl 50 mg 03/10/23 09:00 Sertraline 50 Mg Tab PO DAILY [facility] Intake and Output 03/08/23 03/09/23 03/09/23 22:59 06:59 14:59 Intake Total 200 Output Total 900 Balance -700 Intake: Oral 200 Output: Urine 900 Other: # Voids 1 1 Weight 61.235 kg 61.235 kg 61.235 kg Patient Weight 03/10/23 06:59 Weight 61.235 kg 03/09/23 05:58 03/09/23 05:58
== END 2023-03-09 17:03 | disposition home or self-care (01) | DRG 552 ==
LOC: EC 16:58 → 5NMEDONC 21:28 → 3SCARD 03-09 07:56
PROVIDERS: ADMIT Hospitalist; ATTEND Hospitalist
DX: M51.16 Intervertebral disc disorders with radiculopathy, lumbar region (principal); M48.54XA Collapsed vertebra, not elsewhere classified, thoracic region, initial encounter for fracture; M48.56XA Collapsed vertebra, not elsewhere classified, lumbar region, initial encounter for fracture; N13.4 Hydroureter; J44.9 Chronic obstructive pulmonary disease, unspecified; I48.0 Paroxysmal atrial fibrillation; E83.51 Hypocalcemia; E03.9 Hypothyroidism, unspecified; I12.9 Hypertensive chronic kidney disease with stage 1 through stage 4 chronic kidney disease, or unspecified chronic kidney disease; N18.9 Chronic kidney disease, unspecified; I65.29 Occlusion and stenosis of unspecified carotid artery; G89.29 Other chronic pain; E78.5 Hyperlipidemia, unspecified; F17.210 Nicotine dependence, cigarettes, uncomplicated; E87.6 Hypokalemia; E83.42 Hypomagnesemia; S39.012A Strain of muscle, fascia and tendon of lower back, initial encounter; N83.202 Unspecified ovarian cyst, left side; M47.26 Other spondylosis with radiculopathy, lumbar region; M48.061 Spinal stenosis, lumbar region without neurogenic claudication; Z95.828 Presence of other vascular implants and grafts; Z86.79 Personal history of other diseases of the circulatory system; Z79.890 Hormone replacement therapy; Z88.5 Allergy status to narcotic agent; Z88.0 Allergy status to penicillin; Z88.1 Allergy status to other antibiotic agents; Z79.899 Other long term (current) drug therapy
CPT/HCPCS: 36415; 74176; 80053; 83735; 84100; 84484; 85025; 96361; 96365; 96368; 96375; 99285

== ENCOUNTER → 2023-09-21 | Outpatient (CLI) | payer MEDICARE ==
--- NOTE | 2023-09-23 14:57 | PE ---
EXAMINATION TYPE: PET CT fusion skull to thigh DATE OF EXAM: 09/21/2023 CLINICAL INDICATION:Female, 78 years old with history of R91.1 SOLITARY PULMONARY NODULE; TECHNIQUE: Following the intravenous administration of 8.59 mCi of F-18 FDG, whole body images are performed from the skull base to the midthigh. Images are reviewed on the computer in the coronal, a xial, and sagittal planes. Reconstructed rotating images are created on independent workstation and reviewed on the computer. A non-contrast CT is performed in conjunction with the PET scan. Glucose level 88 mg/dL CT DLP: 276 mGycm, Automated exposure control for dose reduction was used. COMPARISON: CT 03/08/2023, 04/07/2022, PET/CT None, FINDINGS: Mediastinal SUV mean is 2.1. Hepatic parenchyma SUV mean is 2.7. SKULL BASE AND NECK: No suspicious radiotracer activity. CHEST, MEDIASTINUM, AND HILAR REGION: * Left upper lung 12 x 9 mm nodular like opacities max SUV 7.9. * No FDG avid lymphadenopathy or other abnormal suspicious uptake. ABDOMEN AND PELVIS: No suspicious radiotracer activity. MUSCULOSKELETAL STRUCTURES: No suspicious radiotracer activity. OTHER CT: Atherosclerosis of the arterial vasculature. Aortic arch stent graft is present. Heart is within norm al limits for size. Severe atherosclerosis of the arterial vasculature. Proximal abdominal aorta dila tion up to 2.7 x 4.0 cm. The gallbladder surgically absent. Left ovarian cyst measuring up to and 5.0 x 4.7 cm. Mild coronary artery atherosclerosis. Degeneration changes throughout the spine and visual ized joints. IMPRESSION: Left upper lung nodule with increased metabolic activity suspicious for malignancy tissue sampling re commended. No evidence for metastatic disease at this time.
== END | disposition home or self-care (01) ==
LOC: RADPETMAIN 14:38
PROVIDERS: ATTEND Internal Medicine Pulmonary Disease
DX: R91.1 Solitary pulmonary nodule (principal)
CPT/HCPCS: 78815; A9552

== ENCOUNTER → 2023-11-09 | Outpatient (CLI) | payer MEDICARE ==
--- NOTE | 2023-11-09 09:45 | US ---
EXAMINATION TYPE: US thyroid st tissue head/neck DATE OF EXAM: 11/09/2023 COMPARISON: PET CT 2023, US 2021 CLINICAL INDICATION: Female, 78 years old with history of E04.2 NONTOXIC MULTINODULAR GOITER; Nontoxi c multinodular goiter. GLAND SIZE: Right Lobe: 4.4 x 1.3 x 2.0 cm Overall Parenchyma: heterogeneous Left Lobe: 4.0 x 1.2 x 1.3 cm Overall Parenchyma: heterogeneous Isthmus Thickness: 0.34 cm NODULES RIGHT: # of nodules measured on right: 2 1. 1.3 X 0.9 x 0.8 cm, upper mid, Prior size: 0.9 x 0.7 x 0.6 cm TIRADS Score: 3 TIRADS Category 3: Composition: Mixed cystic and solid (1 point). Echogenicity: Hypoechoic (2 points). Shape: Wider than tall (0 points). Margin: Smooth (0 points). Echogenic foci: None or large comet-tail artifacts (0 points) Recommendation: If >2.5cm: FNA; If >1.5cm: Follow up at 1,3,5 years 2. 1.2 X 1.0 x 0.6 cm, mid medial, Prior size: 0.9 x 0.6 x 0.5 cm TIRADS Score: 3 TIRADS Category 3: Composition: Mixed cystic and solid (1 point). Echogenicity: Hypoechoic (2 points). Shape: Wider than tall (0 points). Margin: Smooth (0 points). Echogenic foci: None or large comet-tail artifacts (0 points) Recommendation: If >2.5cm: FNA; If >1.5cm: Follow up at 1,3,5 years LEFT: # of nodules measured on left: 1 1. 0.9 X 0.8 x 0.5 cm, mid medial, Prior size: 0.9 x 0.7 x 0.6 cm TIRADS Score: 4 TIRADS Category 4: Composition: Solid or almost completely solid (2 points). Echogenicity: Hypoechoic (2 points). Shape: Wider than tall (0 points). Margin: Smooth (0 points). Echogenic foci: None or large comet-tail artifacts (0 points) Recommendation: If >1.5cm: FNA; If >1cm: Follow up at 1,2, 3,5 years ISTHMUS: # of nodules measured in the isthmus: 1 1. 0.6 X 0.6 x 0.5 cm Prior size: 0.5 x 0.5 x 0.3 cm TIRADS Score: 3 TIRADS Category 3: Composition: Mixed cystic and solid (1 point). Echogenicity: Hypoechoic (2 points). Shape: Wider than tall (0 points). Margin: Smooth (0 points). Echogenic foci: None or large comet-tail artifacts (0 points) Recommendation: If >2.5cm: FNA; If >1.5cm: Follow up at 1,3,5 years Bilateral neck scanned, no evidence of lymphadenopathy. IMPRESSION: Thyroid nodules that meet criteria for follow-up.
== END | disposition home or self-care (01) ==
LOC: RADUSWWP 07:53
PROVIDERS: ATTEND Internal Medicine Geriatric Medicine
DX: E04.2 Nontoxic multinodular goiter (principal)
CPT/HCPCS: 76536; 84443